=== PATIENT | male | born 2005 | race Hispanic/Latino ===

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

== ENCOUNTER 2025-09-16 15:15 | Emergency (ER) | payer BC, MEDICAID ==
[~2025-09-16] VITALS: Ht 175.3 cm; Wt 139.7 kg
--- NOTE | 2025-09-16 16:39 | HMCIMG ---
EXAM: CR left Rib, 5 View. CLINICAL HISTORY: pain COMPARISON: None provided. FINDINGS: LUNGS: The visualized lungs appear essentially clear. PLEURAL SPACES: No evidence of pneumothorax. No pleural effusion. BONES: No visible acute rib fracture. IMPRESSION: No visible acute rib fracture. No pneumothorax. /[place]
[2025-09-16] MEDS: CYCLOBENZAPRINE HCL 10 MG TABLET PO ONE (17:09)
[2025-09-16 17:18] VITALS: BP 133/79; PULSE 80; RESP 18; TEMP 98.8; O2SAT 98
[2025-09-16] MEDS ORDERED: IBUP-1492 PO (17:26)
[2025-09-16] MEDS ORDERED: CYCL10TA16 PO (17:26)
--- NOTE | 2025-09-16 17:26 | ERN ---
ED Note History of Present Illness Stated Complaint: BACK PAIN Chief Complaint: Back Pain or Injury Time Seen by MD: 15:28 Time Seen by Midlevel: 15:28 Dictation: The patient is a 20-year-old male with a history of hypothyroidism who presents to the emergency department with complaints of left back pain that radiates to the front onset this morning. Patient reports he was trying to get up in twisted wrong when he felt the sharp pain. Patient reports that she also was wrestling two days ago and does not know if that could also cause the pain. Patient denies any numbness or any other associated symptoms. Pain is worse with movement Allergies: Coded Allergies: No Known Drug Allergies (Unverified Allergy, Unknown, 09/16/25) Past Medical History Past Medical History: No Pertinent History, Hypothyroid Surgical History: Other Surgical History Other: BILAT EYE SX, RN Note Reviewed/Agreed w/PFSH: Yes Review of System Dictation Constitutional: Negative for fever,chills, and weight loss Eyes: Negative for injury, pain,redness, and discharge ENT: Negative for injury,pain or swelling Cardiovascular: Negative for chest pain, palpitations, and edema Respiratory: Negative for shortness of breath, cough, and wheezing, Abdomen/GI: Negative for abdominal pain, nausea, vomiting, diarrhea, and constipation Back: Negative for injury and pain : Negative for injury, bleeding and discharge MS/Extremity: Positive for left back mid back pain Skin: Negative for rash, and discoloration Neuro: Negative for headache, weakness, numbness, tingling, and seizure Psych: Negative for suicide ideation, homicidal ideation, and hallucinations Initial Vital Sign VS Vital Signs Date Time Temp Pulse Resp B/P (MAP) Pulse Ox O2 Delivery O2 Flow Rate FiO2 09/16/25 15:21 98.8 88 18 131/80 97 Room Air 0 09/16/25 17:18 21 Physical Exam Dictation Vital Signs reviewed General Appearance: Alert, oriented x 3, no acute distress, well developed, nourished. Head and Face: non-traumatic. Eyes: PERRL, pink conjunctivas, eyelid no trauma, anterior chamber with arcus senilis. Ears: Pinnas intact and no signs of trauma or erythema ear canals clear and no discharge TM no erythema Nose: No discharge, no bleeding. Oropharynx: Mouth normal, tongue pink. pharynx clear,no erythema, tonsils no exudates, no abscesses noted, mucous membrane moist Neck: Supple, non-tender, no thyromegaly, no masses, no JVD, no bruits Breast:Deferred Chest:No tenderness, no crepitus, no paradoxical movement, no retractions Lungs:Clear, well-ventilated, symmetric, no rales, no wheezing, no rhonchi, no stridor, good breath sounds bilaterally Heart: Regular rate, regular rhythm, no murmur, no gallops Vascular: no peripheral edema, Abdomen: Soft, positive bowel sounds, nondistended, no guarding, nontender, no rebound, no masses no hepatomegaly, no splenomegaly, no Hawkins's sign, no hernias. Rectal: Deferred Genital: Deferred Neurological: Normal speech, motor function intact, sensory function intact Musculoskeletal: Neck nontender, full range of motion, back nontender, full range of motion, Extremities: nontender, full range of motion Skin: Color pink, dry, no turgor, no rash, no lacerations, no abrasions, no contusions. Lymphatic: Deferred Results (Laboratory/Radiology) Laboratory/Radiology REASON: pain ORDERING PHYSICIAN: GERALD ALVARADO [employer] PERSON PROCEDURE: RIB LT W C - RIBS UNI LT W PA CHEST 3+VWS EXAM: CR left Rib, 5 View. CLINICAL HISTORY: pain COMPARISON: None provided. FINDINGS: LUNGS: The visualized lungs appear essentially clear. PLEURAL SPACES: No evidence of pneumothorax. No pleural effusion. BONES: No visible acute rib fracture. IMPRESSION: No visible acute rib fracture. No pneumothorax. /[place] [facility] Reviewed?: Yes ED Course ED Course Orders Procedure Category Date Status Time Ribs Uni Lt W Pa RAD 09/16/25 Resulted Chest 3+Vws 15:37 Ketorolac 60mg/2ml PHA 09/16/25 Complete (Toradol 60mg/2ml) 16:00 Cyclobenzaprine Hcl PHA 09/16/25 Complete (Cyclobenzaprine Hcl 16:00 Current Medications Medications (Trade) Dose Ordered Sig/Aris Route PRN Reason Start Time Stop Time Status Last Admin Dose Admin Cyclobenzaprine HCl (Cyclobenzaprine HCl) 10 mg ONCE ONCE PO 09/16/25 16:00 09/16/25 16:01 DC 09/16/25 17:09 Ketorolac Tromethamine (toRADol 60MG/ 2ML) 60 mg ONCE ONCE IM 09/16/25 16:00 09/16/25 16:01 DC 09/16/25 17:09 Vital Signs Date Time Temp Pulse Resp B/P (MAP) Pulse Ox O2 Delivery O2 Flow Rate FiO2 09/16/25 17:18 98.8 80 18 133/79 98 Room Air* 0 21 09/16/25 15:21 98.8 88 18 131/80 97 Room Air 0 Medical Decision Making MDM The patient is a 20-year-old male with a history of hypothyroidism who presents to the emergency department with complaints of left back pain that radiates to the front onset this morning. Patient reports he was trying to get up in twisted wrong when he felt the sharp pain. Patient reports that she also was wrestling two days ago and does not know if that could also cause the pain. Patient denies any numbness or any other associated symptoms. Pain is worse wi th movement Chest x-ray was unremarkable. Patient with no obvious contusions or wounds to the area. Patient was treated with pain medications. Symptoms probably related to a muscle skeletal. Patient with a pain on palpation. On physical exam patient is in no acute distress, nontoxic appearance. Stable vital signs Differential diagnosis: Rib fracture, muscle spasm, pneumothorax Need for hospitalization: Patient does not meet criteria for hospitalization. There are no social concerns with this patient. DX & DISP Disposition: Discharge Departure Impression: Primary Impression: Muscle spasm of back Additional Impression: Rib pain on left side Condition: Stable Scripts Cyclobenzaprine HCl (Flexeril) 10 Mg Tab 10 MG PO TID for muscle sstiffness, #14 TAB 0 Refills Prov: GERALD ALVARADO [employer] PERSON 09/16/25 Ibuprofen (Ibuprofen) 600 Mg Tablet 600 MG PO Q6H PRN for PAIN, #30 TAB Prov: GERALD ALVARADO [employer] PERSON 09/16/25 Additional Instructions: Your x-ray did not show any fractures or dislocations. Please follow up with your primary doctor in 1-2 days. Take medications as prescribed. Avoid any activity that could cause further injury. If anything worsens please return to ER. FOLLOW-UP WITH PRIMARY CARE PROVIDER IN 1 TO 2 DAYS. TAKE MEDICATIONS DIRECTED HERE IN THE EMERGENCY ROOM. OKAY TO CONTINUE HOME MEDICATIONS UNLESS OTHERWISE DISCUSSED DURING YOUR VISIT IN THE EMERGENCY ROOM TODAY. RETURN TO YOUR NEAREST EMERGENCY ROOM IF SYMPTOMS WORSEN OR IF THERE IS NO IMPROVEMENT. CALL 911 IF YOU NEED IMMEDIATE ASSISTANCE. TAKE TYLENOL [id number] NEEDED AND IF NO CONTRAINDICATIONS ARE PRESENT. INCREASE ORAL HYDRATION. A WOUND CULTURE OR URINE CULTURE WAS ORDERED HERE IN THE EMERGENCY ROOM DEPARTMENT PLEASE FOLLOW-UP WITH PRIMARY CARE PROVIDER AND ADVISE THEM TO GET REPEAT PORTS FROM OUR FACILITY. IF YOU HAD ANY STEFANIA WRAP/SPLINTS THAT WERE APPLIED HERE, PLEASE DO NOT REMOVE THEM UNTIL YOU SEE YOUR PRIMARY CARE OR SPECIALTY. Referrals: SELF,REFERRAL (PCP) Time of Disposition: 17:24 I have reviewed the case, and I agree with, Diagnosis and Plan GERALD ALVARADO [employer] PERSON Sep 16, 2025 17:26
== END 2025-09-16 17:55 | disposition home or self-care (01) ==
LOC: EDH 15:15
DX: M62.830 Muscle spasm of back (principal); R07.81 Pleurodynia; X50.1XXA Overexertion from prolonged static or awkward postures, initial encounter; Y93.72 Activity, wrestling; Y92.89 Other specified places as the place of occurrence of the external cause; Y99.8 Other external cause status
CPT/HCPCS: 99284; 71101; 96372; J1885